=== PATIENT | female | born 1950 ===

== ENCOUNTER → 2020-11-09 | Emergency (ER) | payer OTHER ==
[~2020-11-09] VITALS: Ht 154.9 cm; Wt 81.6 kg
== END | disposition home or self-care (01) ==
LOC: ER 13:24
DX: S00.511A Abrasion of lip, initial encounter (principal); S80.02XA Contusion of left knee, initial encounter; S80.01XA Contusion of right knee, initial encounter; S00.33XA Contusion of nose, initial encounter; S00.83XA Contusion of other part of head, initial encounter; S20.214A Contusion of middle front wall of thorax, initial encounter; L89.221 Pressure ulcer of left hip, stage 1; W18.09XA Striking against other object with subsequent fall, initial encounter; Y93.89 Activity, other specified; Y92.89 Other specified places as the place of occurrence of the external cause; Y99.8 Other external cause status